=== PATIENT | female | born 1975 | race Native Hawaiian/Other Pacific Islander ===

== ENCOUNTER 2018-11-12 18:46 | Emergency (ER) | payer OTHER ==
[~2018-11-12] VITALS: Ht 162.6 cm; Wt 108.9 kg
[2018-11-12] MEDS ORDERED: LORA1TAB17 PO (19:25)
[2018-11-12] MEDS ORDERED: RANI150T78 PO (19:25)
[2018-11-12] MEDS ORDERED: BUMETANIDE0.5 MG PO (19:26)
[2018-11-12] MEDS ORDERED: POTA20TA4 (19:26)
[2018-11-12 21:35] VITALS: BP 124/90; TEMP 98.2
== END 2018-11-12 21:35 | disposition home or self-care (01) ==
LOC: ED 18:46
PROC: 0JQP0ZZ Repair Left Lower Leg Subcutaneous Tissue and Fascia, Open Approach (ICD-10-PCS; principal; 2018-11-12)
DX: S81.812A Laceration without foreign body, left lower leg, initial encounter (principal); W45.8XXA Other foreign body or object entering through skin, initial encounter
CPT/HCPCS: 90471; 90715; 99283

== ENCOUNTER 2018-11-19 14:21 | Emergency (ER) | payer OTHER ==
[~2018-11-19] VITALS: Ht 162.6 cm; Wt 108.9 kg
[~2018-11-19 14:21] MED LIST: BUMETANIDE0.5 MG PO; LORA1TAB17 PO; POTA20TA4; RANI150T78 PO
[2018-11-19 14:35] VITALS: BP 148/95; TEMP 97.5
== END 2018-11-19 15:05 | disposition home or self-care (01) ==
LOC: ED 14:21
DX: Z09 Encounter for follow-up examination after completed treatment for conditions other than malignant neoplasm (principal); T81.49XA Infection following a procedure, other surgical site, initial encounter
CPT/HCPCS: 99281

== ENCOUNTER 2018-11-26 14:46 | Emergency (ER) | payer OTHER ==
[~2018-11-26] VITALS: Ht 162.6 cm; Wt 108.9 kg
[2018-11-26 15:36] VITALS: BP 126/93; TEMP 98
== END 2018-11-26 15:36 | disposition home or self-care (01) ==
LOC: ED 14:46
DX: Z48.02 Encounter for removal of sutures (principal)

== ENCOUNTER 2019-09-03 13:42 | Inpatient (IN) | payer OTHER ==
[~2019-09-03] VITALS: Ht 162.6 cm; Wt 101.6 kg
[2019-09-03] VITALS (7 sets, daily range): BP systolic 116–139; BP diastolic 76–101; TEMP 99.4–100.8; Ht 162.6 cm; Wt 101.6 kg
[2019-09-03 15:17] LABS: PLATELET COUNT 346 K/uL (152-353)
[2019-09-03] MEDS ORDERED: K-TAB20 MEQ PO (17:47)
[2019-09-03] MEDS ORDERED: BUMETANIDE1 MG PO (17:48)
[2019-09-03] MEDS ORDERED: ATIVAN2 MG PO (17:48)
[2019-09-03] MEDS ORDERED: PHENTERMINE H37.5 MG PO (17:49)
[2019-09-03] MEDS ORDERED: LYRICA200 MG PO (17:49)
[2019-09-03] MEDS ORDERED: OLANZAPINE5 M1 PO (17:50)
[2019-09-04] VITALS: BP 139/79; TEMP 100.8
== END 2019-09-04 01:50 | disposition left against medical advice (07) | DRG 193 ==
LOC: ED 13:42 → MED/SURG 15:50
PROVIDERS: ADMIT Emergency Medicine
DX: J18.8 Other pneumonia, unspecified organism (principal); I50.33 Acute on chronic diastolic (congestive) heart failure; K21.9 Gastro-esophageal reflux disease without esophagitis; E66.8 Other obesity; F41.8 Other specified anxiety disorders; R06.02 Shortness of breath
CPT/HCPCS: 36415; 82805; 83605; 83735; 83880; 84484; 85027; 87040; 87502; 87651; 93005; 94640; 94664; 94760; 96360; 96365; 96366; 96375; 99284; J0456; J0696; J1885; J1940